=== PATIENT | male | born 1980 | race Caucasian/White ===

== ENCOUNTER 2022-11-10 17:32 | Emergency (ER) | payer OTHER ==
[2022-11-10 17:41] VITALS: BP 139/97; PULSE 82; RESP 16; TEMP 97.4; BMI 30.1
[2022-11-10] MEDS ORDERED: IBUPROFEN 600 MG TABLET (FP) PO ONE ×2 (18:44→18:46)
== END 2022-11-10 18:52 | disposition home or self-care (01) ==
LOC: JERFT 17:32
DX: M72.2 Plantar fascial fibromatosis (principal)
CPT/HCPCS: 73630-TC-RT-FY; 99283-25

== ENCOUNTER 2023-04-12 12:45 | Emergency (ER) | payer OTHER ==
[2023-04-12 12:52] VITALS: BP 160/93; PULSE 126; RESP 18; TEMP 100; BMI 30.9
== END 2023-04-12 15:06 | disposition home or self-care (01) ==
LOC: JER 12:45 → JERFT 12:45
DX: R50.9 Fever, unspecified (principal); R05.9 Cough, unspecified; M79.10 Myalgia, unspecified site; B34.9 Viral infection, unspecified; Z20.822 Contact with and (suspected) exposure to COVID-19
CPT/HCPCS: 0241U-QW; 99283-25